=== PATIENT | female | born 1990 | race Caucasian/White ===

== ENCOUNTER 2017-07-13 07:18 | Emergency (ER) | payer OTHER, SELFPAY ==
[2017-07-13 07:32] VITALS: BP 109/72; PULSE 89; O2SAT 98
[2017-07-13] MEDS ORDERED: Adacel Vial IM ONE ×2 (07:44→07:51)
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
== END 2017-07-13 08:06 | disposition home or self-care (01) ==
LOC: ED 07:18
DX: H60.11 Cellulitis of right external ear (principal)
CPT/HCPCS: 90471; 90715; 99283; 99284

== ENCOUNTER 2018-12-27 01:30 | Emergency (ER) | payer OTHER ==
[2018-12-27] MEDS ORDERED: Zofran 4 MG/2 ML VIAL IV ONE (02:09)
[2018-12-27] MEDS ORDERED: TORAdol 30 mg Injection IV ONE (02:09)
[2018-12-27] MEDS ORDERED: Hydromorphone 1 mg/ml Ampule IV ONE ×2 (02:09→05:06)
[2018-12-27] MEDS ORDERED: Sodium Chloride 0.9% 1000 ML 1,000 ML IV STA (02:09)
--- NOTE | 2018-12-27 02:09 | ERPHSYRPT ---
- History of Present Illness Time Seen by Provider: 12/27/18 01:50 Historian: patient Exam Limitations: no limitations Patient Subjective Stated Complaint: left flankpain Triage Nursing Assessment: constant lt flank pain, pt grimacing et holding lt side, wincing, restless Physician History: 28 y/o white female presents with sudden onset 2 days ago of left flank pain that has worsened. no radiation of pain. cannot get comfortable. never had before. denies urinary sx. denies abd pain, denies cp. Timing/Duration: day(s) (s), sudden, worse Quality: sharpness, stabbing Abdominal Pain Onset Location: other (left flank) Pain Radiation: no radiation Severity of Pain-Max: moderate Severity of Pain-Current: moderate Modifying Factors: Improves With: nothing Associated Symptoms: denies symptoms Previous symptoms: no prior history Allergies/Adverse Reactions: No Known Drug Allergies Allergy (Unverified 12/27/18 01:46) Home Medications: No Reportable Medications [No Reported Medications] 12/27/18 [History] Hx Influenza Vaccination/Date Given: No - Review of Systems Constitutional: No Symptoms Eyes: No Symptoms Ears, Nose, & Throat: No Symptoms Respiratory: No Symptoms Cardiac: No Symptoms Abdominal/Gastrointestinal: No Symptoms Genitourinary Symptoms: Flank Pain (left) Musculoskeletal: No Symptoms Skin: No Symptoms Neurological: No Symptoms Psychological: No Symptoms Endocrine: No Symptoms Hematologic/Lymphatic: No Symptoms Immunological/Allergic: No Symptoms All Other Systems: Reviewed and Negative - Past Medical History Pertinent Past Medical History: No ENT History: No Pertinent History Cardiac History: No Pertinent History Respiratory History: No Pertinent History Endocrine Medical History: No Pertinent History Musculoskeletal History: No Pertinent History GI Medical History: No Pertinent History History: No Pertinent History Psycho-Social History: No Pertinent History Female Reproductive Disorders: No Pertinent History - Past Surgical History Past Surgical History: No - Social History Smoking Status: Current every day smoker Drug Use: none - Female History Hx Now: No - Nursing Vital Signs Nursing Vital Signs: Initial Vital Signs Temperature 98 F 12/27/18 01:36 Pulse Rate 73 12/27/18 01:36 Respiratory Rate 18 12/27/18 01:36 Blood Pressure 134/77 12/27/18 01:36 O2 Sat by Pulse Oximetry 96 12/27/18 01:36 Pain Scale Pain Intensity 0 - Physical Exam General Appearance: mild distress, alert, anxiety Eye Exam: PERRL/EOMI, eyes nml inspection Ears, Nose, Throat Exam: normal ENT inspection, moist mucous membranes Neck Exam: normal inspection, non-tender, supple, full range of motion Respiratory Exam: normal breath sounds, lungs clear, No chest tenderness, No respiratory distress Cardiovascular Exam: regular rate/rhythm, normal heart sounds, normal peripheral pulses Gastrointestinal/Abdomen Exam: soft, normal bowel sounds, No tenderness Pelvic Exam: not done Rectal Exam: not done Back Exam: CVA tenderness (left) Extremity Exam: normal inspection, normal range of motion, pelvis stable Neurologic Exam: alert, oriented x 3, cooperative, site director II-XII nml as tested Skin Exam: normal color, warm, dry Lymphatic Exam: No adenopathy SpO2 Interpretation: airway management int. SpO2: 96 O2 Delivery: Room Air - Course Nursing assessment & vital signs reviewed: Yes Ordered Tests: Active Orders 24 hr Category Date Time Status IV Insertion STAT Care 12/27/18 02:09 Active ABDOMEN AND PELVIS W/0 CONTRAS [CT] Stat Exams 12/27/18 02:09 Taken AMYLASE Stat Lab 12/27/18 01:50 Completed CBC W DIFF Stat Lab 12/27/18 01:50 Completed CMP Stat Lab 12/27/18 01:50 Completed HCG,QUALITATIVE URINE Stat Lab 12/27/18 01:55 Completed LIPASE Stat Lab 12/27/18 01:50 Completed Lactic Acid Stat Lab 12/27/18 02:20 Completed Manual Differential NC Stat Lab 12/27/18 01:50 Completed UA W/RFX UR CULTURE Stat Lab 12/27/18 01:55 Completed Medication Summary Generic Name Dose Route Start Last Admin Trade Name Freq PRN Reason Stop Dose Admin Sodium Chloride 500 mls @ 500 mls/hr 12/27/18 04:18 12/27/18 04:22 Sodium Chloride 0.9% 500 Ml IV 12/27/18 05:17 500 mls/hr .Q1H ONE Administration Discontinued Medications Generic Name Dose Route Start Last Admin Trade Name Freq PRN Reason Stop Dose Admin Hydromorphone HCl 1 mg 12/27/18 02:09 12/27/18 02:21 Hydromorphone 1 Mg/Ml Ampule IV 12/27/18 02:10 1 mg STAT ONE Administration Hydromorphone HCl Confirm 12/27/18 02:18 Hydromorphone 1 Mg/Ml Ampule Administered 12/27/18 02:19 Dose 1 mg .ROUTE .STK-MED ONE Sodium Chloride 1,000 mls @ 999 mls/hr 12/27/18 02:09 12/27/18 03:46 Sodium Chloride 0.9% 1000 Ml IV 12/27/18 03:09 Infused .Q1H1M STA Infusion Sodium Chloride Confirm 12/27/18 02:18 Sodium Chloride 0.9% 1000 Ml Administered 12/27/18 02:19 Dose 1,000 mls @ ud .ROUTE .STK-MED ONE Sodium Chloride Confirm 12/27/18 04:22 Sodium Chloride 0.9% 500 Ml Administered 12/27/18 04:23 Dose 500 mls @ ud IV .STK-MED ONE Ketorolac Tromethamine 30 mg 12/27/18 02:09 12/27/18 02:20 Toradol 30 Mg Injection IV 12/27/18 02:10 30 mg STAT ONE Administration Ketorolac Tromethamine Confirm 12/27/18 02:18 Toradol 30 Mg Injection Administered 12/27/18 02:19 Dose 30 mg .ROUTE .STK-MED ONE Ondansetron HCl 4 mg 12/27/18 02:09 12/27/18 02:25 Zofran 4 Mg/2 Ml Vial IV 12/27/18 02:10 4 mg STAT ONE Administration Ondansetron HCl Confirm 12/27/18 02:18 Zofran 4 Mg/2 Ml Vial Administered 12/27/18 02:19 Dose 4 mg .ROUTE .STK-MED ONE Ondansetron HCl Confirm 12/27/18 02:25 Zofran 4 Mg/2 Ml Vial Administered 12/27/18 02:26 Dose 4 mg .ROUTE .STK-MED ONE Lab/Rad Data: Laboratory Result Diagrams 12/27/18 01:50 12/27/18 01:50 Laboratory Results 12/27/18 12/27/18 12/27/18 Range/Units 02:20 01:55 01:55 WBC (4.0-10.5) K/mm3 RBC (4.1-5.4) M/mm3 Hgb (12.0-16.0) gm/dl Hct (35-47) % MCV (78-100) fl MCH (26-32) pg MCHC (32-36) g/dl RDW (11.5-14.0) % Plt Count (150-450) K/mm3 MPV (6-9.5) fl Segmented Neutrophils (36.0-66.0) % Lymphocytes (Manual) (24-44) % Monocytes (Manual) (0.0-12.0) % Eosinophils (Manual) (0.00-3.0) % Basophils (Manual) (0.0-1.0) % Myelocytes % Promyelocytes % Hypochromia Toxic Granulation Platelet Estimate (NORMAL) RBC Morphology Poikilocytosis Anisocytosis Sodium (137-145) mmol/L Potassium (3.5-5.1) mmol/L Chloride (98-107) mmol/L Carbon Dioxide (22-30) mmol/L Anion Gap (5-15) MEQ/L BUN (7-17) mg/dL Creatinine (0.52-1.04) mg/dL Estimated GFR ML/MIN Glucose (74-106) mg/dL Lactic Acid 0.8 (0.4-2.0) Calcium (8.4-10.2) mg/dL Total Bilirubin (0.2-1.3) mg/dL AST (14-36) U/L ALT (0-35) U/L Alkaline Phosphatase (38-126) U/L Serum Total Protein (6.3-8.2) g/dL Albumin (3.5-5.0) g/dL Amylase (30-110) U/L Lipase (23-300) U/L Urine Color YELLOW (YELLOW) Urine Appearance CLEAR (CLEAR) Urine pH 5.0 (5-6) Ur Specific [place] 1.023 (1.005-1.025) Urine Protein NEGATIVE (Negative) Urine Ketones NEGATIVE (NEGATIVE) Urine Blood NEGATIVE (0-5) Haris/ul Urine Nitrite NEGATIVE (NEGATIVE) Urine Bilirubin NEGATIVE (NEGATIVE) Urine Urobilinogen NEGATIVE (0-1) mg/dL Ur Leukocyte Esterase NEGATIVE (NEGATIVE) Urine WBC (Auto) 0-2 (0-5) /HPF Urine RBC (Auto) 0-2 (0-2) /HPF U Epithel Cells (Auto) RARE (FEW) /HPF Urine Mucus (Auto) SLIGHT (NEGATIVE) /HPF Urine Culture Reflexed NO (NO) Urine Glucose NEGATIVE (NEGATIVE) mg/dL Urine HCG, Qual NEGATIVE (Negative) 12/27/18 12/27/18 Range/Units 01:50 01:50 WBC 14.4 H (4.0-10.5) K/mm3 RBC 4.13 (4.1-5.4) M/mm3 Hgb 12.8 (12.0-16.0) gm/dl Hct 38.7 (35-47) % MCV 93.7 (78-100) fl MCH 31.0 (26-32) pg MCHC 33.1 (32-36) g/dl RDW 12.8 (11.5-14.0) % Plt Count 329 (150-450) K/mm3 MPV 9.4 (6-9.5) fl Segmented Neutrophils 52 (36.0-66.0) % Lymphocytes (Manual) 38 (24-44) % Monocytes (Manual) 2 (0.0-12.0) % Eosinophils (Manual) 3 (0.00-3.0) % Basophils (Manual) 2 H (0.0-1.0) % Myelocytes 2 % Promyelocytes 1 % Hypochromia 1+ Toxic Granulation 1+ Platelet Estimate NORMAL (NORMAL) RBC Morphology ABNORMAL Poikilocytosis 2+ Anisocytosis 2+ Sodium 142 (137-145) mmol/L Potassium 3.7 (3.5-5.1) mmol/L Chloride 105 (98-107) mmol/L Carbon Dioxide 27 (22-30) mmol/L Anion Gap 14.9 (5-15) MEQ/L BUN 18 H (7-17) mg/dL Creatinine 0.63 (0.52-1.04) mg/dL Estimated GFR > 60.0 ML/MIN Glucose 91 (74-106) mg/dL Lactic Acid (0.4-2.0) Calcium 9.6 (8.4-10.2) mg/dL Total Bilirubin 0.20 (0.2-1.3) mg/dL AST 34 (14-36) U/L ALT 40 H (0-35) U/L Alkaline Phosphatase 92 (38-126) U/L Serum Total Protein 8.3 H (6.3-8.2) g/dL Albumin 4.4 (3.5-5.0) g/dL Amylase 79 (30-110) U/L Lipase 65 (23-300) U/L Urine Color (YELLOW) Urine Appearance (CLEAR) Urine pH (5-6) Ur Specific [place] (1.005-1.025) Urine Protein (Negative) Urine Ketones (NEGATIVE) Urine Blood (0-5) Haris/ul Urine Nitrite (NEGATIVE) Urine Bilirubin (NEGATIVE) Urine Urobilinogen (0-1) mg/dL Ur Leukocyte Esterase (NEGATIVE) Urine WBC (Auto) (0-5) /HPF Urine RBC (Auto) (0-2) /HPF U Epithel Cells (Auto) (FEW) /HPF Urine Mucus (Auto) (NEGATIVE) /HPF Urine Culture Reflexed (NO) Urine Glucose (NEGATIVE) mg/dL Urine HCG, Qual (Negative) - Progress Progress: improved, pain not gone completely, re-examined Progress Note: 12/27/18 05:04 ct abd/pelvis-left kidney stone nonobstructing and left ovarian cyst - Departure Departure Disposition: Home Clinical Impression: Nephrolithiasis, Ovarian cyst Condition: Stable Critical Care Time: No Referrals: JC SABILLON MD [Primary Care Provider] - Additional Instructions: drink plenty of fluids. use tylenol and ibuprofen for pain. follow up with primary doctor for further management and pain control
[2018-12-27] MEDS ORDERED: Zofran 4 MG/2 ML VIAL ONE ×2 (02:18→02:25)
[2018-12-27] MEDS ORDERED: TORAdol 30 mg Injection ONE (02:18)
[2018-12-27] MEDS ORDERED: Hydromorphone 1 mg/ml Ampule ONE ×2 (02:18→05:11)
[2018-12-27] MEDS ORDERED: Sodium Chloride 0.9% 1000 ML 1,000 ML ONE (02:18)
[2018-12-27 02:19] LABS: Hematocrit 38.7 % (35-47); Hemoglobin 12.8 gm/dl (12.0-16.0); Mean Cell Volume 93.7 fl (78-100); Mean Corpuscular Hgb Concent. 33.1 g/dl (32-36); Mean Platelet Volume 9.4 fl (6-9.5); Platelet Count 329 K/mm3 (150-450); Red Blood Count 4.13 M/mm3 (4.1-5.4); Red Cell Distribution Width 12.8 % (11.5-14.0); White Blood Count 14.4 K/mm3 (4.0-10.5)
[2018-12-27 02:28] LABS: ALBUMIN 4.4 g/dL (3.5-5.0); ALKALINE PHOSPHATASE 92 U/L (38-126); AMYLASE 79 U/L (30-110); ANION GAP 14.9 MEQ/L (5-15); BLOOD UREA NITROGEN 18 mg/dL (7-17); CHLORIDE 105 mmol/L (98-107); Calcium 9.6 mg/dL (8.4-10.2); Carbon Dioxide 27 mmol/L (22-30); Creatinine 1 0.63 mg/dL (0.52-1.04); Glucose 91 mg/dL (74-106); LIPASE 65 U/L (23-300); Potassium 3.7 mmol/L (3.5-5.1); SGOT/AST 34 U/L (14-36); SGPT/ALT 40 U/L (0-35); SODIUM 142 mmol/L (137-145); Total Protein 8.3 g/dL (6.3-8.2)
[2018-12-27 02:46] LABS: Appearance CLEAR (CLEAR); Bilirubin NEGATIVE (NEGATIVE); Blood NEGATIVE Ery/ul (0-5); Epithelial Cells RARE /HPF (FEW); Glucose NEGATIVE (NEGATIVE); Ketones NEGATIVE (NEGATIVE); Leukocyte Esterase NEGATIVE (NEGATIVE); Mucus SLIGHT /HPF (NEGATIVE); Nitrite NEGATIVE (NEGATIVE); Protein,Urine Dip NEGATIVE (Negative); RBC 0-2 /HPF (0-2); Specific Gravity 1.023 (1.005-1.025); Urobilinogen NEGATIVE mg/dL (0-1); WBC 0-2 /HPF (0-5)
[2018-12-27 02:52] LABS: ANISOCYTOSIS 2+; Basophil 2 % (0.0-1.0); Eosinophil 3 % (0.00-3.0); Hypochromia 1+; Lymphocytes 38 % (24-44); Monocyte 2 % (0.0-12.0); Myelocyte 2 %; Neutrophils 52 % (36.0-66.0); Platelet Estimate NORMAL (NORMAL); Poikilocytosis 2+; Promyelocyte 1 %; Total Cells Counted 100; Toxic Granulation 1+
[2018-12-27] MEDS ORDERED: Sodium Chloride 0.9% 500 ML 500 ML IV ONE ×2 (04:18→04:22)
[2018-12-27 05:16] VITALS: BP 113/82; PULSE 62; O2SAT 100
--- NOTE | 2018-12-27 08:51 | XRAY ---
Indication: Left flank pain. Multiple contiguous axial images obtained through the abdomen and pelvis without contrast as ordered. Comparison: None. Lung bases demonstrates mild bilateral dependent atelectasis. No infiltrate or effusion. Heart is not enlarged. Left upper quadrant presumed vascular coils produces beam artifact. Noncontrasted stomach and bowel loops appear nonobstructed. Appendix not seen. 3.4 cm left ovary cyst. Tiny cul-de-sac fluid presumed from rupture/leaking cyst. No free air. Nonobstructing punctate left renal calculus. Remaining liver, gallbladder, pancreas, spleen, adrenal glands, kidneys, ureters, bladder, uterus, and aorta appear unremarkable for noncontrast exam. Osseous structures intact. Impression: 1. Beam artifact in the left upper quadrant from presumed vascular coils. 2. 3.4 [place] left ovary cyst. Also tiny cul-de-sac fluid presumed physiologic. 3. Nonobstructing left renal micro-calculus. 4. Remaining CT abdomen/pelvis without contrast exam is negative. Comment: Preliminary interpretation was made by [facility]. No critical discrepancy. CT DI 9.35
== END 2018-12-27 05:33 | disposition home or self-care (01) ==
LOC: ED 01:30 → MERGE 01:30 → ED 05:33
DX: N20.0 Calculus of kidney (principal); N83.209 Unspecified ovarian cyst, unspecified side
CPT/HCPCS: 36000; 36415; 74176; 80053; 81001; 82150; 83605; 83690; 84703; 85025; 96360; 96361; 96365; 96374; 96375; 96376; 99285; J1170; J1885; J2405

== ENCOUNTER 2019-12-08 11:56 | Emergency (ER) | payer OTHER ==
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
[2019-12-08] MEDS ORDERED: Phenergan 25 MG INJ IM ONE (12:47)
[2019-12-08] MEDS ORDERED: Hydromorphone 1 mg/ml Ampule IM ONE (12:47)
[2019-12-08] MEDS ORDERED: Hydromorphone 1 mg/ml Ampule ONE (12:50)
[2019-12-08] MEDS ORDERED: Phenergan 25 MG INJ ONE (12:50)
--- NOTE | 2019-12-08 12:50 | XRAY ---
Indication: Severe headache 4 days. Multiple contiguous axial images obtained through the head without contrast. Comparison: February 14, 2016. Stable bilateral cerebellar and left frontal lobe encephalomalacia presumed from old insult/injury. New small bilateral basal ganglia remote lacunar infarcts. No acute intracranial hemorrhage, hydrocephalus, or mass effect. Patel-white matter differentiation preserved. Bony calvarium intact with stable bilateral occipital bone postsurgical changes. Impression: New finding old bilateral basal ganglia lacunar infarcts. Stable bilateral cerebellar and left frontal lobe encephalomalacia. No acute intracranial abnormalities.
[2019-12-08 12:57] VITALS: BP 99/72; PULSE 72; O2SAT 98
== END 2019-12-08 13:07 | disposition home or self-care (01) ==
LOC: ED 11:56
DX: G43.909 Migraine, unspecified, not intractable, without status migrainosus (principal)
CPT/HCPCS: 70450; 96372; 99284; J1170; J2550

== ENCOUNTER 2020-11-28 17:48 | Emergency (ER) | payer OTHER ==
[2020-11-28] MEDS ORDERED: HYDROCODONE-ACETAMIN 10-325 MG PO ONE (17:49)
[2020-11-28 17:54] VITALS: BP 116/67; PULSE 93; O2SAT 98
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
[2020-11-28] MEDS ORDERED: NORCO 7.5/325 MG TAB PO ONE (19:38)
[2020-11-28] MEDS ORDERED: DECADRON 10MG INJ. ONE (22:07)
[2020-11-28] MEDS ORDERED: Zithromax 250 MG TABLET ONE (22:07)
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
== END 2020-11-29 07:40 | disposition home or self-care (01) ==
LOC: ED 17:48
DX: J18.9 Pneumonia, unspecified organism (principal); R19.7 Diarrhea, unspecified; R51.9 Headache, unspecified; R11.10 Vomiting, unspecified; H92.09 Otalgia, unspecified ear; Z20.822 Contact with and (suspected) exposure to COVID-19
CPT/HCPCS: 71045; 96372; 99283; U0003; J1100; A9270-GY

== ENCOUNTER 2021-01-31 07:46 | Emergency (ER) | payer OTHER ==
[2021-01-31 08:18] LABS: Absolute Neutrophil Ct (ANC) 8.09 (1.4-6.9); BASOPHIL % 0.4 % (0.0-0.4); Basophil (Absolute #) 0.04 (0-0.4); Eosinophil (Absolute #) 0.11 (0-0.5); Hemoglobin 13.1 gm/dl (12.0-16.0); Lymphocyte (Absolute #) 2.15 (1.0-4.6); Lymphocytes % 19.4 % (24.0-44.0); Mean Cell Volume 96.2 fl (78-100); Mean Corpuscular Hemoglobin 30.8 pg (26-32); Mean Platelet Volume 10.2 fl (7.5-11.0); Monocyte (Absolute #) 0.67 (0.0-1.3); Monocytes % 6.1 % (0.0-12.0); Neutrophil % 73.1 % (36.0-66.0); Platelet Count 204 K/mm3 (150-450); Red Blood Count 4.26 M/mm3 (4.1-5.4); Red Cell Distribution Width 13.4 % (11.5-14.0); White Blood Count 11.1 K/mm3 (4.0-10.5)
[2021-01-31] MEDS ORDERED: Sodium Chloride 0.9% 1000 ML 1,000 ML IV STA (08:18)
[2021-01-31] MEDS ORDERED: Sodium Chloride 0.9% 1000 ML 1,000 ML ONE (08:19)
[2021-01-31 08:21] LABS: Appearance SLIGHTLY CLOUDY (CLEAR); Bacteria RARE /HPF (NEGATIVE); Bilirubin NEGATIVE (NEGATIVE); Blood NEGATIVE Ery/ul (0-5); Epithelial Cells RARE /HPF (FEW); Glucose NEGATIVE (NEGATIVE); Ketones NEGATIVE (NEGATIVE); Leukocyte Esterase NEGATIVE (NEGATIVE); Mucus SLIGHT /HPF (NEGATIVE); Nitrite NEGATIVE (NEGATIVE); Protein,Urine Dip NEGATIVE (Negative); Specific Gravity 1.005 (1.005-1.025); Urobilinogen NEGATIVE mg/dL (0-1); WBC 0-2 /HPF (0-5)
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
[2021-01-31 08:32] LABS: ACETAMINOPHEN < 10 ug/ml (10-30); ALBUMIN 4.3 g/dL (3.5-5.0); ALKALINE PHOSPHATASE 62 U/L (38-126); ANION GAP 14.1 MEQ/L (5-15); BLOOD UREA NITROGEN 9 mg/dL (7-17); CHLORIDE 106 mmol/L (98-107); Calcium 9.5 mg/dL (8.4-10.2); Carbon Dioxide 24 mmol/L (22-30); Creatinine 1 0.74 mg/dL (0.52-1.04); EST GLOMERULAR FILTRATION RATE > 60.0 ML/MIN; ETHYL ALCOHOL < 10 mg/dL (0-10); Glucose 167 mg/dL (74-106); Potassium 3.9 mmol/L (3.5-5.1); SALICYLATE < 1.0 mg/dL (2-20); SGOT/AST 22 U/L (14-36); SGPT/ALT 18 U/L (0-35); SODIUM 141 mmol/L (137-145)
[2021-01-31 08:50] LABS: Amphetamine,Urine NEGATIVE (NEGATIVE); Barbiturate,Urine NEGATIVE (NEGATIVE); Benzodiazepine,Urine NEGATIVE (NEGATIVE); Cocaine,Urine NEGATIVE (NEGATIVE); Methadone,Urine NEGATIVE (NEGATIVE); Opiate,Urine NEGATIVE (NEGATIVE); PCP,Urine NEGATIVE (NEGATIVE); THC,Urine POSITIVE (NEGATIVE)
[2021-01-31 10:41] VITALS: O2SAT 99
[2021-01-31 11:56] VITALS: BP 102/72; PULSE 84
== END 2021-01-31 12:02 | disposition home or self-care (01) ==
LOC: ED 07:46
DX: F12.929 Cannabis use, unspecified with intoxication, unspecified (principal)
CPT/HCPCS: 36000; 36415; 80053; 80307; 81001; 81025; 84484; 85025; 87086; 93005; 96360; 99284; G0480

== ENCOUNTER 2021-08-23 11:32 | Emergency (ER) | payer MEDICAID, OTHER ==
[2021-08-23] MEDS ORDERED: Reglan 10 MG/2 ML IM ONE (11:59)
[2021-08-23] MEDS ORDERED: BENADRYL 50 MG/ML IM ONE (11:59)
[2021-08-23] MEDS ORDERED: TYLENOL 325 MG PO ONE (11:59)
[2021-08-23] MEDS ORDERED: TORAdol 30 mg Injection IM ONE (11:59)
[2021-08-23] MEDS ORDERED: TORAdol 30 mg Injection ONE (12:06)
[2021-08-23] MEDS ORDERED: BENADRYL 50 MG/ML ONE (12:07)
[2021-08-23] MEDS ORDERED: TYLENOL 325 MG ONE (12:07)
[2021-08-23] MEDS ORDERED: Reglan 10 MG/2 ML ONE (12:07)
[2021-08-23 12:34] VITALS: BP 105/73; PULSE 72; O2SAT 99
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
== END 2021-08-23 12:49 | disposition home or self-care (01) ==
LOC: ED 11:32
DX: G43.009 Migraine without aura, not intractable, without status migrainosus (principal); R11.0 Nausea; Z86.73 Personal history of transient ischemic attack (TIA), and cerebral infarction without residual deficits
CPT/HCPCS: 96372; 99284; J1200; J1885; A9270-GY

== ENCOUNTER 2023-09-23 13:02 | Emergency (ER) | payer OTHER ==
[2023-09-23 13:07] VITALS: RESP 24; TEMP 96.8
[2023-09-23] MEDS ORDERED: Ativan 1 MG ONE (13:38)
[2023-09-23] MEDS: Ativan 1 MG PO ONE (13:39)
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
[2023-09-23 13:46] LABS: Absolute Neutrophil Ct (ANC) 3.27 x10^3/uL (1.56-6.13); BASOPHIL % 1.1 % (0.1-1.2); Basophil (Absolute #) 0.07 x10^3/uL (0.01-0.08); Eosinophil % 5.3 % (0.7-5.8); Eosinophil (Absolute #) 0.35 x10^3/uL (0.04-0.36); Hematocrit 39.8 % (34.1-44.9); Hemoglobin 13.2 g/dL (11.2-15.7); IMMATURE GRAN # 0.01 x10^3u/L (0.001-0.031); IMMATURE GRAN % 0.2 % (0.001-0.429); Lymphocyte (Absolute #) 2.16 x10^3/uL (1.18-3.74); Lymphocytes % 32.8 % (19.3-51.7); Mean Cell Volume 91.1 fL (79.4-94.8); Mean Corpuscular Hemoglobin 30.2 pg (25.6-32.2); Mean Corpuscular Hgb Concent. 33.2 g/dL (32.2-35.5); Mean Platelet Volume 10.1 fL (9.4-12.3); Monocyte (Absolute #) 0.72 x10^3/uL (0.24-0.86); Monocytes % 10.9 % (4.7-12.5); Neutrophil % 49.7 % (34.0-71.1); Platelet Count 283 x10^3/uL (182-369); Red Blood Count 4.37 x10^6/uL (3.93-5.22); Red Cell Distribution Width 12.2 % (11.7-14.4); White Blood Count 6.6 x10^3/uL (3.98-10.04)
[2023-09-23 13:49] LABS: HCG URINE TEST NEGATIVE (NEGATIVE)
[2023-09-23 14:29] LABS: ALBUMIN 4.1 g/dL (3.5-5.0); ALKALINE PHOSPHATASE 52 U/L (38-126); BLOOD UREA NITROGEN 18 mg/dL (7-17); CHLORIDE 109 mmol/L (98-107); Calcium 9.1 mg/dL (8.4-10.2); Carbon Dioxide 24 mmol/L (22-30); Creatinine 1 0.73 mg/dL (0.52-1.04); EST GLOMERULAR FILTRATION RATE 110.6 ML/MIN; Glucose 90 mg/dL (74-106); NT PRO BNPII < 20.0 pg/mL (<300); Potassium 4.1 mmol/L (3.5-5.1); SGOT/AST 20 U/L (14-36); SGPT/ALT 17 U/L (0-35); SODIUM 140 mmol/L (135-145); Total Protein 7.4 g/dL (6.3-8.2)
[2023-09-23 15:05] VITALS: BP 116/77; PULSE 53; O2SAT 100
--- NOTE | 2023-09-23 15:12 | XRAY ---
Indication: Chest pain/tightness. Comparison: November 28, 2020 Portable chest is now clear. Heart and mediastinal structures within normal limits. Bony thorax intact. Impression: Nonacute chest.
[2023-09-23 17:11] LABS: Amphetamine,Urine NEGATIVE (NEGATIVE); Barbiturate,Urine NEGATIVE (NEGATIVE); Benzodiazepine,Urine POSITIVE (NEGATIVE); Cocaine,Urine NEGATIVE (NEGATIVE); Methadone,Urine NEGATIVE (NEGATIVE); Opiate,Urine NEGATIVE (NEGATIVE); PCP,Urine NEGATIVE (NEGATIVE); THC,Urine NEGATIVE (NEGATIVE)
== END 2023-09-23 15:35 | disposition home or self-care (01) ==
LOC: ED 13:02
DX: F41.0 Panic disorder [episodic paroxysmal anxiety] (principal); Z79.899 Other long term (current) drug therapy; Z72.0 Tobacco use
CPT/HCPCS: 36000; 36415; 71045; 80053; 80307; 81025; 83880; 84484; 85025; 93005; 99284; A9270-GY

== ENCOUNTER 2024-03-17 13:29 | Emergency (ER) | payer OTHER ==
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
[2024-03-17 13:40] VITALS: TEMP 98.3
[2024-03-17] MEDS: Sodium Chloride 0.9% 250 ML 250 ML IV SCH (14:08)
[2024-03-17 14:25] LABS: Absolute Neutrophil Ct (ANC) 5.21 x10^3/uL (1.56-6.13); BASOPHIL % 0.9 % (0.1-1.2); Basophil (Absolute #) 0.07 x10^3/uL (0.01-0.08); Eosinophil % 3.2 % (0.7-5.8); Eosinophil (Absolute #) 0.24 x10^3/uL (0.04-0.36); Hematocrit 37.8 % (34.1-44.9); Hemoglobin 12.5 g/dL (11.2-15.7); IMMATURE GRAN # 0.02 x10^3u/L (0.001-0.031); IMMATURE GRAN % 0.3 % (0.001-0.429); Lymphocyte (Absolute #) 1.31 x10^3/uL (1.18-3.74); Lymphocytes % 17.4 % (19.3-51.7); Mean Cell Volume 90.2 fL (79.4-94.8); Mean Corpuscular Hemoglobin 29.8 pg (25.6-32.2); Mean Corpuscular Hgb Concent. 33.1 g/dL (32.2-35.5); Mean Platelet Volume 9.2 fL (9.4-12.3); Monocyte (Absolute #) 0.68 x10^3/uL (0.24-0.86); Neutrophil % 69.2 % (34.0-71.1); Platelet Count 244 x10^3/uL (182-369); Red Blood Count 4.19 x10^6/uL (3.93-5.22); Red Cell Distribution Width 12.4 % (11.7-14.4); White Blood Count 7.5 x10^3/uL (3.98-10.04)
[2024-03-17 14:32] VITALS: RESP 18
[2024-03-17 14:36] LABS: HCG SERUM TEST NEGATIVE (NEGATIVE)
[2024-03-17 14:38] LABS: PROTIME 10.9 SECONDS (9.4-12.5)
[2024-03-17 15:07] LABS: Appearance Clear (Clear); Bacteria None Seen /HPF (None Seen); Bilirubin Negative (Negative); Blood Negative (Negative); Epithelial Cells Few /HPF (None Seen); Glucose, Urine Negative (Negative); Hyaline Casts NONE SEEN /LPF (0-2); Ketones Negative (Negative); Leukocyte Esterase Trace (Negative); Nitrite Negative (Negative); Ph 5.5 (4.6-8.0); Protein,Urine Dip Negative (Negative); Specific Gravity 1.025 (1.005-1.030); Urobilinogen 0.2 mg/dL (0.2)
[2024-03-17 15:09] LABS: ALBUMIN 4.4 g/dL (3.5-5.0); ANION GAP 11.7 MEQ/L (5-15); BILIRUBIN,TOTAL 0.4 mg/dL (0.2-1.3); Calcium 9.6 mg/dL (8.4-10.2); Creatinine 1 0.88 mg/dL (0.52-1.04); EST GLOMERULAR FILTRATION RATE 87.8 ML/MIN; Potassium 3.9 mmol/L (3.5-5.1); TSH, 3RD Generation 1.522 mIU/L (0.470-4.680); Total Protein 7.5 g/dL (6.3-8.2)
[2024-03-17 15:10] VITALS: PULSE 54
[2024-03-17 15:30] LABS: INFLUENZA A NEGATIVE (NEGATIVE); INFLUENZA B NEGATIVE (NEGATIVE); RESPIRATORY SYNCTIAL VIRUS NEGATIVE (NEGATIVE); SARS-CoV-2 Xpert Express NEGATIVE (NEGATIVE)
--- NOTE | 2024-03-17 16:42 | XRAY ---
Indication: Weakness. Visual change. Multiple contiguous axial images obtained through the head without contrast. Comparison: December 08, 2019 Grossly stable appearing bilateral cerebellar and bifrontal lobe encephalomalacia from old insult/injury. Stable remote bilateral basal ganglia lacunar infarcts. No acute intracranial hemorrhage, abnormal extra-axial fluid question, or mass effect. Fourth ventricle is midline without hydrocephalus. Patel-white matter differentiation preserved. Bony calvarium intact. Visualized paranasal sinuses and mastoid air cells are clear. Impression: Stable old bilateral cerebellar/bilateral frontal lobe infarcts and old bilateral basal ganglia lacunar infarcts. No new/acute intracranial abnormalities.
[2024-03-17 17:02] VITALS: BP 124/80; O2SAT 100
== END 2024-03-17 17:04 | disposition home or self-care (01) ==
LOC: ED 13:29
DX: R53.1 Weakness (principal); G47.00 Insomnia, unspecified; Z86.73 Personal history of transient ischemic attack (TIA), and cerebral infarction without residual deficits; R51.9 Headache, unspecified; N39.0 Urinary tract infection, site not specified; R63.0 Anorexia
CPT/HCPCS: 0241U; 36415; 70450; 80053; 81001; 83735; 84439; 84443; 84484; 84703; 85025; 85610; 86308; 87086; 93005; 93041; 94760; 99284

== ENCOUNTER 2024-08-18 21:46 | Emergency (ER) | payer OTHER ==
[2024-08-18 22:00] VITALS: RESP 18; TEMP 97.8
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
[2024-08-18] MEDS ORDERED: BENADRYL 25 MG CAPSULE ONE (23:00)
[2024-08-18] MEDS ORDERED: DELTASONE 20 MG ONE (23:00)
[2024-08-18] MEDS: DELTASONE 20 MG PO ONE (23:01)
[2024-08-18] MEDS: BENADRYL 25 MG CAPSULE PO ONE (23:02)
[2024-08-18 23:08] VITALS: BP 117/89
[2024-08-18] MEDS ORDERED: Acular OPTH SOL OP ONE (23:13)
[2024-08-18] MEDS: OLOPATADINE 0.1% OP ONE (23:14)
[2024-08-18] MEDS: Acular OPTH SOL OP ONE (23:15)
[2024-08-18 23:23] VITALS: PULSE 62; O2SAT 98
== END 2024-08-18 23:21 | disposition home or self-care (01) ==
LOC: ED 21:46
DX: H10.12 Acute atopic conjunctivitis, left eye (principal); Z79.52 Long term (current) use of systemic steroids; Z79.899 Other long term (current) drug therapy; Z72.0 Tobacco use
CPT/HCPCS: 99282; 99283; A9270-GY